=== PATIENT | female | born 2000 | race Two or more races ===

== ENCOUNTER 2024-07-09 03:51 | Emergency (ER) | payer MEDICAID, SELFPAY ==
[2024-07-09 03:51] VITALS: BMI 35.9
[2024-07-09 03:59] VITALS: BP 131/91; PULSE 110; RESP 18; TEMP 36.8; O2SAT 99
--- NOTE | 2024-07-09 04:15 | XR_ITS ---
Examination: Complete OB ultrasound greater than 14 weeks Date and time of exam: July 09, 2024 0429 hours INDICATIONS: Pelvic cramping beginning today Findings: Viable intrauterine single fetus with single amniotic sac presentation cephalic spine posterior Cardiac motion 141 BPM Placenta fundal grade 0 Umbilical cord insertion seen Amniotic fluid index 11.1 cm Cervix 3.9 cm spine posterior Right ovary 3.7 cm arterial flow Left ovary 3.1 cm arterial flow. Composite estimated gestational age based on BPD, head circumference, abdominal circumference, femur length is 15 weeks 6 days Estimated weight 139 g. Survey of intracranial anatomy, spinal anatomy, abdominal anatomy, four-chamber heart performed with no abnormalities identified. Impression: Viable intrauterine gestation cephalic presentation.
--- NOTE | 2024-07-09 04:15 | PD.EDRME ---
Rapid Medical Screening Exam [facility] Arrival date/time: 07/09/24 03:51 23F at approximately 15 weeks and with no significant PMH presents to ED with 1 day of R pelvic pain/cramping. Patient denies vaginal bleeding and dysuria. Chief Complaint: Abdominal Pain Vital signs: Vital Signs Temperature 98.2 F 07/09/24 03:59 Pulse Rate 110 H 07/09/24 03:59 Respiratory Rate 18 07/09/24 03:59 Blood Pressure 131/91 H 07/09/24 03:59 Pulse Oximetry (%) 99 07/09/24 03:59 Oxygen Delivery Method Room Air 07/09/24 03:59
--- NOTE | 2024-07-09 05:27 | PRELIM_ITS ---
Obstetric ultrasound with Doppler and wave Doppler spectral analysis. July 09, 2024 at 0429 hours Clinical history: Pain/cramping, no bleeding; 15 weeks. Comparison: None. Findings: There is a gravid uterus with a live fetus in cephalic presentation of mean gestational age 15 weeks and 6 days (by biometry). cardiac activity is present at a heart rate of 141 beats per minute. The placenta is fundal in location, maturity grade 0. There is no evidence of placenta previa or retroplacental hemorrhage. Amniotic fluid is adequate (MOODY = 11.1 cm). Estimated weight is 139 grams+/- 21 grams. The right ovary measures 3.7 x 1.7 x 2.4 cm. The left ovary measures 3.1 x 1.6 x 2.4 cm. Normal blood flow in the bilateral ovaries with normal wave Doppler spectral analysis. Impression: Gravid uterus with a single live fetus in cephalic presentation of mean gestational age 15 weeks 6 days. No evidence of ovarian torsion. Report Electronically Signed By: Nicholas Alvarez 07/09/2024 5:26:04 AM [EST]
[2024-07-09 05:35] LABS: Basophils % (Auto) 1 % (0-2.5); Eosinophils # (Auto) 0.1 Thou/mm3 (0.0-0.5); Eosinophils % (Auto) 1 % (0-10); Hematocrit 39.6 % (36.0-46.0); Hemoglobin 13.6 g/dL (12.0-16.0); Immature Granulocytes % (Auto) 1 % (0-0); Immature Granulocytes Auto 0.04 Thou/mm3 (0.00-0.00); Lymphocytes # (Auto) 1.7 Thou/mm3 (1.0-4.8); Lymphocytes % (Auto) 19 % (10-50); Mean Corpuscular HGB Conc 34.3 g/dl (31.0-37.0); Mean Corpuscular Hemoglobin 28.5 pg (25.0-35.0); Mean Corpuscular Volume 83 fL (80-100); Monocytes # (Auto) 0.5 Thou/mm3 (0.0-0.8); Monocytes % (Auto) 6 % (0-12); Neutrophils # (Auto) 6.4 Thou/mm3 (1.8-7.7); Neutrophils % (Auto) 73 % (37-80); Nucleated Red Blood Cell % 0 /100 WBC (0); Platelet Count 316 Thou/mm3 (140-440); RDW Standard Deviation 39.2 fL (36.4-46.3); Red Blood Count 4.78 Miln/mm3 (4.00-5.20); White Blood Count 8.8 Thou/mm3 (3.6-11.0)
[2024-07-09 05:49] LABS: Collection Type, Urine Clean Catch; RBC,Urine 0 /hpf (0-3); WBC,Urine 0 /hpf (0-5)
[2024-07-09 06:16] LABS: Bacteria,Urine Rare; Bilirubin,Urine Negative (Negative); Blood,Urine Negative (Negative); Clarity,Urine Turbid (Clear/Hazy); Color,Urine Lt-Yellow (Lt Yel-Yel); Glucose, Urine Negative (Negative); Ketones,Urine Negative (Negative); Leukocyte Esterase,Urine Negative (Negative); Nitrite,Urine Negative (Negative); PH,Urine 6.5 (5.0-7.0); Protein,Urine Negative (Neg - Trace); Specific Gravity,Urine 1.016 (1.001-1.035); Squamous Epithelial Cell,Urine 7 /hpf (0-5); Urobilinogen,Urine Negative mg/dL (0.0-1.0)
[2024-07-09 06:43] LABS: Alanine Aminotransferase 81 U/L (10-49); Albumin, Serum 4.3 gm/dL (3.5-5.0); Albumin/Globulin Ratio 1.5 (1.2-2.2); Alkaline Phosphatase 90 U/L (46-116); Anion Gap 8 (7-16); Aspartate Amino Transferase 33 U/L (0-34); BUN/Creatinine Ratio 12 Ratio (12-20); Beta HCG,Quantitative 39932 mIU/mL (<5.0); Bilirubin,Total 0.4 mg/dL (0.3-1.2); Blood Urea Nitrogen 7 mg/dL (9-23); Calcium 9.6 mg/dL (8.3-10.6); Calcium (Corrected) 9.6 mg/dL (8.5-10.1); Carbon Dioxide 24.2 mMol/L (20.0-31.0); Chloride 109 mMol/L (98-107); Creatinine (Component) 0.6 mg/dL (0.6-1.3); Estimated Creatinine Clearance 139.7 mL/min (>60); Globulin 2.9 gm/dL (2.3-3.5); Glucose 99 mg/dL (74-106); Osmolality,Calculated 279 (275-295); Potassium 3.3 mMol/L (3.4-5.1); Sodium 141 mMol/L (136-145); Total Protein 7.2 gm/dL (5.7-8.2); eGFR > 60 See Note
--- NOTE | 2024-07-09 07:32 | EDNOTE_ITS ---
ED Abdominal Pain RME/HPI General Chief Complaint: Abdominal Pain Stated complaint: RLQ PAIN 15WKS PREG Time seen by provider: 07/09/24 07:03 Arrival date/time: 07/09/24 03:51 This is a 23-year-old female who presents to the emergency department with complaints of generalized abdominal pain and cramping. She reports being approximately 15 weeks . The pain has been intermittent for the past 3 days and is worsened by movement or stretching. She denies any vaginal bleeding, nausea, vomiting, fever, chills, or dysuria. She has not taken any medications for symptom relief. Her symptoms prompted today's ED visit for further evaluation. Limitations: no limitations RME / HPI RME / HPI narrative: 07/09/24 03:51 23F at approximately 15 weeks and with no significant PMH presents to ED with 1 day of R pelvic pain/cramping. Patient denies vaginal bleeding and dysuria. Related Data Allergies Allergy/AdvReac Type Severity Reaction Status Date / Time No Known Allergies Allergy Verified 07/09/24 03:53 Review of Systems Review of Systems Systems Reviewed: All systems reviewed, normal except as documented Narrative Review of Systems: Gen: No fever, no chills, no weight loss EYES: No discharge, no visual changes, no pain HEENT: No ear pain, no congestion, no sore throat PULM: No shortness of breath, no cough, no congestion CV: No chest pain, no dyspnea on exertion, no palpitations GI: No nausea, no vomiting, no diarrhea, +abd pain, no constipation : No frequency, no urgency,? no dysuria Musc/skel: No joint pain, no back pain Skin: No rash? ED Exam General Limitations: Present no limitations General appearance: Present alert and in no apparent distress Head Head exam: Present atraumatic Eye Eye exam: Present normal appearance, PERRL and EOMI ENT ENT exam: Present normal exam, normal oropharynx and mucous membranes moist Neck Neck exam: Present normal inspection, full ROM and trachea midline Chest Chest inspection: Present normal inspection and symmetric chest wall rise Respiratory Respiratory exam: Present normal lung sounds bilaterally Cardiovascular Cardiovascular exam: Present regular rate, normal rhythm and normal heart sounds Abdominal Exam Abdominal exam: Present soft and normal bowel sounds Extremities Exam Extremities exam: Present normal inspection and full ROM Back Exam Back exam: Present normal inspection and full ROM Neurological Exam Neurological exam: Present alert, oriented X3 and CN II-XII intact Psychiatric Psychiatric exam: Present normal affect and normal mood Skin Skin exam: Present warm, dry, intact and normal color Course Quality Measures none Orders Category Date Time Status US OB >= 14 weeks Fetus Stat Exams 07/09/24 04:15 Taken Beta HCG,Quantitative Stat Lab 07/09/24 05:06 Completed CBC Stat Lab 07/09/24 05:06 Completed CMP [Comprehensive Metabolic Panel] Stat Lab 07/09/24 05:06 Completed UA [Urinalysis] Stat Lab 07/09/24 05:25 Completed Urine Culture Stat Lab 07/09/24 05:25 Received Vital Signs Vital signs: Vital Signs Temperature 98.2 F 07/09/24 03:59 Pulse Rate 110 H 07/09/24 03:59 Respiratory Rate 18 07/09/24 03:59 Blood Pressure 131/91 H 07/09/24 03:59 Pulse Oximetry (%) 99 07/09/24 03:59 Oxygen Delivery Method Room Air 07/09/24 03:59 Abdominal Pain MDM MDM Narrative MDM Narrative:: The patient was awake, alert, and in no acute distress. Vital signs remained stable throughout her ED stay. General labs were obtained: CBC showed no leukocytosis or bandemia; urinalysis was negative. OB ultrasound revealed a gravid uterus with a single live intrauterine fetus measuring approximately 15 weeks and 6 days. No signs of acute renal failure were noted. At the time of discharge, the patient reported resolution of pain at rest, with mild discomfort only upon movement. She was advised that her symptoms are likely due to round ligament pain associated with . Assessment and Plan: 23-year-old female at approximately 15 weeks gestation presenting with intermittent generalized abdominal pain. * Stable vital signs, no systemic symptoms * Negative urinalysis, no signs of infection or acute pathology on labs * OB ultrasound reassuring with live intrauterine * Likely round ligament pain * Advised to take OTC Tylenol as needed for discomfort * Follow-up with OB provider * Strict return precautions: return to ED for worsening pain, vaginal bleeding, fever, or any concerning changes Patient data External records reviewed:: [facility] previous records Clinical information provided by:: patient Social determinants that could affect healthcare access:: none Patient has the following chronic illnesses:: no How is presenting disease/condition affected by chronic disease/condition?: no chronic disease Evaluation data The following diagnostics were reviewed and interpreted by me:: lab results and radiology exam(s) Lab and/or radiology exams considered but not ordered:: no Interpretation Summary: Ultrasound Doppler demonstrates gravid uterus with single live fetus 15 weeks 6 days no evidence of ovarian torsion. Medications / Prescriptions Medications or Prescriptions considered but not ordered:: No Medication administrations:: No Consultations Consultation(s) initiated? (list below): No Diagnosis Differential diagnosis abdominal pain: abdominal pain, calculus of kidney, constipation, gastroenteritis, pancreatitis and small bowel obstruction Most likely diagnosis given after review of the tests above:: Round ligament Admission Indicated Admission indicated?: not indicated Admission Request Was there a request for admission?: No Disposition Plan Disposition Plan: Discharge Discharge Attestation Discharge Attestation: The patient and all family members were given an opportunity to ask questions and understood the discharge instructions. Discharge instructions specifically effects, indications for sooner follow up or return to the emergency department, and the expected course of current diagnosis. Patient condition: Stable Discharge Plan Plan Patient Disposition: HOME (Self Care) Patient condition on transfer: Stable Prescriptions/Referrals Referrals: No Primary/Family,Physician [Primary Care Provider] - In 1 week Problem List Clinical Impression: Pain of round ligament during Patient/Caregiver Discharge Instructions Discharge Activity: activity as tolerated Education Materials: Round Ligament Pain Additional Instructions: This very important for you to make an appointment for follow-up with your BO[employer] SUPERVISOR or family doctor. Please return to the emergency department this any worsening symptoms change in condition. You can take [id number] Tylenol for pain. Print Language: Chilean Stand Alone Forms: [employer] Award Info., Work/School Release, Patient Portal Info Letter FAN/CHONG Supervising Physician JESSE Supervising Physician: dr Melton
[2024-07-09 08:51] VITALS: BP 122/78; PULSE 89; O2SAT 99
== END 2024-07-09 08:51 | disposition home or self-care (01) ==
PROVIDERS: Physician Assistant; Emergency Provider Family Medicine
DX: O26.892 Other specified pregnancy related conditions, second trimester (principal); R10.2 Pelvic and perineal pain; Z3A.15 15 weeks gestation of pregnancy
CPT/HCPCS: 36415; 76805; 80053; 81001; 84702; 85025; 87086; 99284

== ENCOUNTER 2025-01-10 23:33 | Emergency (ER) | payer MEDICAID, SELFPAY ==
[2025-01-10 23:34] VITALS: BMI 32.2
[2025-01-10 23:43] VITALS: BP 144/85; PULSE 73; RESP 16; TEMP 36.7; O2SAT 99
--- NOTE | 2025-01-10 23:44 | EDNOTE_ITS ---
ED Abdominal Pain RME/HPI General Chief Complaint: Abdominal Pain Stated complaint: EPIGASTRIC PAIN X 15MINS Time seen by provider: 01/10/25 23:39 Arrival date/time: 01/10/25 23:33 RME / HPI RME / HPI narrative: See [facility] for Dr. Allen's HPI documentation. Related Data Previous Rx's ?Medication ?Instructions ?Recorded famotidine 40 mg tablet 40 mg PO .bedtime #30 tabs 1 omeprazole 40 mg capsule,delayed 40 mg PO QDAY #30 cap s 01/11/25 release ondansetron 4 mg disintegrating 4 mg PO TID PRN nausea and 01/11/25 tablet vomiting 30 days #10 tabs Allergies Allergy/AdvReac Type Severity Reaction Status Date / Time No Known Allergies Allergy Verified 07/09/24 03:53 Review of Systems Review of Systems Systems Reviewed: All systems reviewed, normal except as documented Past Medical History Social History SMOKING STATUS: Never smoker ED Exam Narrative Physical exam: See [facility] for Dr. Allen's HPI documentation. Course Quality Measures none Orders Category Date Time Status Saline [Insert IV] NOW Care 01/10/25 23:48 Completed US gall bladder Stat Exams 01/11/25 00:15 Taken Amylase Stat Lab 01/10/25 23:56 Completed Bilirubin,Direct Stat Lab 01/10/25 23:56 Completed CBC Stat Lab 01/10/25 23:56 Completed CMP [Comprehensive Metabolic Panel] Stat Lab 01/10/25 23:56 Completed HCG,Qualitative Serum Stat Lab 01/10/25 23:56 Completed Lipase Stat Lab 01/10/25 23:56 Completed Magnesium Stat Lab 01/10/25 23:56 Completed UA, C/S IF [Urinalysis, C/S if Indicated] Stat Lab 01/11/25 00:40 Completed Famotidine Inj [Pepcid Inj] Med 01/11/25 00:11 Discontinued 20 mg IVP X1 ONE HYDROmorphone INJ [Dilaudid Inj] Med 01/10/25 23:48 Discontinued 1 mg IVP X1 ONE Ketorolac Inj [Toradol Inj] Med 01/10/25 23:48 Discontinued 30 mg IVP X1 ONE Morphine* Inj Med 01/10/25 23:51 Discontinued 4 mg IV X1 ONE Ondansetron Inj [Zofran Inj] Med 01/10/25 23:48 Discontinued 4 mg IVP X1 ONE Pantoprazole Inj [Protonix Inj] Med 01/11/25 00:11 Discontinued 40 mg IVP X1 ONE Sodium Chloride 0.9% 1000 ml [Ns] 1,000 ml Med 01/10/25 23:48 Discontinued IV 999 mls/hr Vital Signs Vital signs: Vital Signs Temperature 98.0 F 01/10/25 23:43 Pulse Rate 73 01/10/25 23:43 Respiratory Rate 16 01/10/25 23:43 Blood Pressure 144/85 H 01/10/25 23:43 Pulse Oximetry (%) 99 01/10/25 23:43 Oxygen Delivery Method Room Air 01/10/25 23:43 Abdominal Pain MDM MDM Narrative MDM Narrative:: This section includes all my notes and documentations, including HPI, PE, and ED course. Hardik Allen MD HPI: 24yo female here with epigastric pain and nausea for the last one hour. Radiates into chest. Patient gave one month ago. No other complaints reported. ROS: All negative except as documented in HPI. Physical Exam: General: Alert and oriented. Appears to be in pain. Eyes: Conjunctivae and lids clear. ENT: No nasal congestion. Neck: Supple. Heart: RRR. Lungs: No respiratory distress. Good air movement. No rhonchi, wheezing, rales. Abdomen: Soft and upper abdominal tenderness. Normal bowel sounds. No distension. No rebound or guarding. Back: No CVA tenderness. Skin: Warm and dry. Neuro: Alert and oriented X 3. I reviewed all diagnostic test results. My review of the gallbladder US report is cholelithiasis. Blood tests and urine tests are unremarkable. At this point, diagnoses include: GERD Cholelithiasis Treatment here included: Protonix Pepcid Zofran Morphine Toradol IV fluid Significant improvement noted. Recommended more outpatient workup. Based on my best medical judgment, made decision no further evaluation or treatment indicated at this time. Patient understands and agrees to the discharge instructions customized and printed, see below. Discharge instructions from Dr. Allen: ?After evaluation, your symptoms are due to GERD (see attached handout). ?To help healing, take Omeprazole 40 mg every morning and Famotidine 40 mg at bedtime for a week then as needed. ?Zofran for nausea/vomiting. Clear liquid diet for 24 hours. Then slowly advance diet as tolerated. ?Avoid food and beverages that can trigger and worsen ulcers. See attached handout. ?See a private doctor on 01/13/2025. To make sure there is no serious intra-abdominal condition, ask for help with more investigation not available here in the ER. Such as EGD or scoping the stomach, colonoscopy or scoping the colon, and referral to see web operations specialist. Ask to review all test results and official radiology reports, to make sure you receive all necessary follow-ups and monitoring. ?Seek immediate medical care with worsening or with any concerns. Hardik Allen MD Patient data External records reviewed:: [facility] previous records (Per chart review, patient has no relevant previous ED visits.) Clinical information provided by:: patient Social determinants that could affect healthcare access:: none Patient has the following chronic illnesses:: none How is presenting disease/condition affected by chronic disease/condition?: no chronic disease Evaluation data The following diagnostics were reviewed and interpreted by me:: lab results and radiology exam(s) Lab and/or radiology exams considered but not ordered:: none Interpretation Summary: I reviewed all diagnostic test results. My review of the gallbladder US report is cholelithiasis. Blood tests and urine tests are unremarkable. Medications / Prescriptions Medications or Prescriptions considered but not ordered:: none Medication administrations:: Medication Administration History Discontinued Medications Famotidine (Famotidine Inj 10 Mg/Ml Vial 2 Ml) 20 mg IVP X1 ONE Stop: 01/11/25 00:12 Last Admin: 01/11/25 00:29 Dose: 20 mg Documented By: FIDE Hydromorphone HCl (Hydromorphone Inj 2 Mg/Ml Vial) 1 mg IVP X1 ONE Stop: 01/10/25 23:49 Last Admin: 01/11/25 00:07 Dose: Not Given Documented By: FIDE Non-Admin Reason: Cancelled by Provider Sodium Chloride (Ns) 1,000 mls @ 999 mls/hr IV .Q1H1M ONE Stop: 01/11/25 00:48 Last Infusion: 01/11/25 01:20 Dose: Infused Documented By: [email or web address] Admin: 01/11/25 00:15 Dose: 999 mls/hr Documented By: FIDE Ketorolac Tromethamine (Ketorolac Inj 30 Mg/Ml Vial) 30 mg IVP X1 ONE Stop: 01/10/25 23:49 Last Admin: 01/11/25 00:29 Dose: 30 mg Documented By: EE Morphine Sulfate (Morphine Sulf Inj 4 Mg/Ml Vial) 4 mg IV X1 ONE Stop: 01/10/25 23:52 Last Admin: 01/11/25 00:16 Dose: Not Given Documented By: EE Non-Admin Reason: Patient Refused Ondansetron HCl (Ondansetron Inj 2 Mg/Ml Inj 2 Ml) 4 mg IVP X1 ONE; Protocol Stop: 01/10/25 23:49 Last Admin: 01/11/25 00:16 Dose: Not Given Documented By: EE Non-Admin Reason: Patient Refused Pantoprazole Sodium (Pantoprazole Inj 40 Mg Vial) 40 mg IVP X1 ONE Stop: 01/11/25 00:12 Last Admin: 01/11/25 00:29 Dose: 40 mg Documented By: EE Protonix Pepcid Zofran Morphine Toradol IV fluid Consultations Consultation(s) initiated? (list below): No Diagnosis Differential diagnosis abdominal pain: calculus of kidney, constipation, diverticulitis, gastroenteritis, pancreatitis, small bowel obstruction and other (Biliary colic, GERD, gastritis, PUD) Most likely diagnosis given after review of the tests above:: GERD Cholelithiasis Admission Indicated Admission indicated?: not indicated Explain why admission is indicated or not indicated:: With significant improvement and no condition needing emergent intervention, there was no indication for admission. Admission Request Was there a request for admission?: No Disposition Plan Disposition Plan: Discharge Discharge Attestation Discharge Attestation: The patient and all family members were given an opportunity to ask questions and understood the discharge instructions. Discharge instructions specifically effects, indications for sooner follow up or return to the emergency department, and the expected course of current diagnosis. Patient condition: Stable Discharge Plan Plan Patient Disposition: HOME (Self Care) Prescriptions/Referrals Prescriptions/Med Rec: New famotidine 40 mg tablet 40 mg PO .bedtime Qty: 30 0RF omeprazole 40 mg capsule,delayed release(DR/EC) 40 mg PO QDAY Qty: 30 0RF ondansetron 4 mg tablet,disintegrating 4 mg PO TID PRN (Reason: nausea and vomiting) 30 Days Qty: 10 0RF Referrals: Temporary Provider,ED [Physician, Emergency Medicine] - In 1 week Problem List Clinical Impression: GERD (gastroesophageal reflux disease) Patient/Caregiver Discharge Instructions Discharge Activity: activity as tolerated Education Materials: ED GERD (Adult) Additional Instructions: Discharge instructions from Dr. Allen: ?After evaluation, your symptoms are due to GERD (see attached handout).? ?To help healing, take Omeprazole 40 mg every morning and Famotidine 40 mg at bedtime for a week then as needed. ?Zofran for nausea/vomiting.? Clear liquid diet for 24 hours.? Then slowly advance diet as tolerated. ?Avoid food and beverages that can trigger and worsen ulcers.? See attached handout. ?See a private doctor on 01/13/2025. To make sure there is no serious intra-abdominal condition, ask for help with more investigation not available here in the ER.? Such as EGD or scoping the stomach, colonoscopy or scoping the colon, and referral to see gastroenter ologist. Ask to review all test results and official radiology reports, to make sure you receive all necessary follow-ups and monitoring. ?Seek immediate medical care with worsening or with any concerns. Print Language: Czech Stand Alone Forms: [employer] Award Info., Patient Portal Info Letter
[2025-01-11 00:05] LABS: Basophils # (Auto) 0.0 Thou/mm3 (0.0-0.2); Basophils % (Auto) 0 % (0-2.5); Eosinophils # (Auto) 0.2 Thou/mm3 (0.0-0.5); Eosinophils % (Auto) 3 % (0-10); Hematocrit 40.5 % (36.0-46.0); Hemoglobin 13.5 g/dL (12.0-16.0); Immature Granulocytes Auto 0.02 Thou/mm3 (0.00-0.00); Lymphocytes # (Auto) 3.3 Thou/mm3 (1.0-4.8); Lymphocytes % (Auto) 49 % (10-50); Mean Corpuscular HGB Conc 33.3 g/dl (31.0-37.0); Mean Corpuscular Hemoglobin 29.0 pg (25.0-35.0); Mean Corpuscular Volume 87 fL (80-100); Monocytes # (Auto) 0.4 Thou/mm3 (0.0-0.8); Monocytes % (Auto) 6 % (0-12); Neutrophils # (Auto) 2.9 Thou/mm3 (1.8-7.7); Neutrophils % (Auto) 43 % (37-80); Nucleated Red Blood Cell # 0.00 Thou/mm3 (0.00-0.00); Nucleated Red Blood Cell % 0 /100 WBC (0); Platelet Count 326 Thou/mm3 (140-440); RDW Standard Deviation 38.5 fL (36.4-46.3); Red Blood Count 4.66 Miln/mm3 (4.00-5.20); White Blood Count 6.8 Thou/mm3 (3.6-11.0)
[2025-01-11] MEDS: SODIUM CHLORIDE 0.9% 1000 ML 1,000 ML 999 ML IV (00:15)
--- NOTE | 2025-01-11 00:15 | XR_ITS ---
Examination: Abdomen sonogram, Limited Date and time of exam: January 11, 2025, 0033 hrs. Indications: Right upper abdominal pain today Technique: Real-time james scale transabdominal sonographic images of the upper abdomen obtained. Findings: Multiple gallstones Gallbladder wall 0.3 cm no edema Common bile duct 0.3 cm Pancreatic head 2.1 cm Liver 16.5 cm no liver lesions Normal hepatopedal portal venous flow Patent IVC Impression: Cholelithiasis, negative for cholecystitis
[2025-01-11 00:26] LABS: Alanine Aminotransferase 48 U/L (10-49); Albumin, Serum 4.7 gm/dL (3.5-5.0); Albumin/Globulin Ratio 1.6 (1.2-2.2); Alkaline Phosphatase 130 U/L (46-116); Amylase 91 U/L (30-118); Anion Gap 10 (7-16); Aspartate Amino Transferase 29 U/L (0-34); BUN/Creatinine Ratio 12 Ratio (12-20); Bilirubin,Direct < 0.1 mg/dL (0.0-0.3); Bilirubin,Total 0.2 mg/dL (0.3-1.2); Blood Urea Nitrogen 11 mg/dL (9-23); Calcium 9.9 mg/dL (8.3-10.6); Calcium (Corrected) 9.9 mg/dL (8.5-10.1); Carbon Dioxide 26.9 mMol/L (20.0-31.0); Chloride 105 mMol/L (98-107); Creatinine (Component) 0.9 mg/dL (0.6-1.3); Estimated Creatinine Clearance 87.1 mL/min (>60); Globulin 2.9 gm/dL (2.3-3.5); Glucose 103 mg/dL (74-106); Lipase 51 U/L (12-53); Magnesium 2.1 mg/dL (1.6-2.6); Osmolality,Calculated 282 (275-295); Potassium 3.4 mMol/L (3.4-5.1); Sodium 142 mMol/L (136-145); Total Protein 7.6 gm/dL (5.7-8.2); eGFR > 60 See Note
[2025-01-11] MEDS: FAMOTIDINE INJ 10 MG/ML VIAL 2 ML 20 MG IVP (00:29)
[2025-01-11] MEDS: KETOROLAC INJ 30 MG/ML VIAL IVP (00:29)
[2025-01-11 00:41] LABS: Collection Type, Urine Clean Catch
[2025-01-11 00:50] LABS: Bilirubin,Urine Negative (Negative); Blood,Urine Negative (Negative); Clarity,Urine Clear (Clear/Hazy); Color,Urine Colorless (Lt Yel-Yel); Culture Indicated,Urine Not Indicated; Glucose, Urine Negative (Negative); Ketones,Urine Negative (Negative); Leukocyte Esterase,Urine Negative (Negative); Nitrite,Urine Negative (Negative); PH,Urine 7.0 (5.0-7.0); Protein,Urine Negative (Neg - Trace); RBC,Urine 1 /hpf (0-3); Specific Gravity,Urine 1.004 (1.001-1.035); Squamous Epithelial Cell,Urine 3 /hpf (0-5); Urobilinogen,Urine Negative mg/dL (0.0-1.0); WBC,Urine < 1 /hpf (0-5)
[2025-01-11 00:57] LABS: HCG,Qualitative Serum Negative
[2025-01-11 01:20] VITALS: BP 115/72; PULSE 77; RESP 20; TEMP 36.6; O2SAT 100
--- NOTE | 2025-01-11 01:59 | PRELIM_ITS ---
Right upper quadrant abdominal ultrasound with Doppler and wave Doppler spectral analysis. January 11, 2025 0033 hours Clinical history: RUQ tenderness Technique: Grayscale and color flow images of the right upper quadrant are provided. Hepatic and portal veins were also imaged with color flow images. Comparison: None available at the time of this report. Findings: The liver is normal in echogenicity. Hepatomegaly. No intrahepatic biliary ductal dilatation. Gallstones. No gallbladder wall thickening or pericholecystic fluid is demonstrated. The common bile duct is normal in caliber at 3.1 mm. The pancreas is unremarkable to the extent visualized. The imaged portions of the right kidney are within normal limits. The portal vein is patent with hepatopetal flow and normal wave Doppler spectral analysis. The hepatic veins are patent with normal wave Doppler spectral analysis. The hepatic vein is patent with normal wave Doppler spectral analysis. Jeff sign is not available at the time of this report. Impression: Hepatomegaly. Gallstones without evidence of acute cholecystitis. Report Electronically Signed By: Nicholas Alvarez 01/11/2025 1:58:09 AM [EST]
== END 2025-01-11 01:21 | disposition home or self-care (01) ==
PROVIDERS: Emergency Provider Emergency Medicine
DX: K21.9 Gastro-esophageal reflux disease without esophagitis (principal)
CPT/HCPCS: 36415; 76705; 80053; 81001; 82150; 82248; 83690; 83735; 84703; 85025; 96361; 96374; 96375; 99284; J1885; J2470; J3490; J7030

== ENCOUNTER 2025-01-15 18:17 | Emergency (ER) | payer MEDICAID, SELFPAY ==
[2025-01-15 19:12] VITALS: BP 123/85; PULSE 79; RESP 18; TEMP 36.6; O2SAT 100; BMI 32.2
--- NOTE | 2025-01-15 19:24 | EDNOTE_ITS ---
ED Abdominal Pain RME/HPI General Chief Complaint: Abdominal Pain Stated complaint: SEVERE UPPER ABD PAIN Time seen by provider: 01/15/25 19:21 Arrival date/time: 01/15/25 18:17 24F with history of GERD (recent diagnosis and visit) presents to ED with burning epigastric pain that radiates to throat. Patient was discharged recently with some meds, but patient didn't take any because she thought she didn't need to. She ate some fast food and now has the same burning pain. Limitations: no limitations Related Data Previous Rx's ?Medication ?Instructions ?Recorded famotidine 40 mg tablet 40 mg PO .bedtime #30 tabs 1 omeprazole 40 mg capsule,delayed 40 mg PO QDAY #30 cap s 01/11/25 release ondansetron 4 mg disintegrating 4 mg PO TID PRN nausea and 01/11/25 tablet vomiting 30 days #10 tabs Allergies Allergy/AdvReac Type Severity Reaction Status Date / Time No Known Allergies Allergy Verified 01/15/25 18:19 Review of Systems Review of Systems Systems Reviewed: All systems reviewed, normal except as documented Gastrointestinal Gastrointestinal: Reports as per HPI and Reports abdominal pain Past Medical History Past Medical History CARDIAC: Negative Congestive Heart Failure RESPIRATORY: Negative Chronic Obstructive Pulmonary Disease (COPD) GENITOURINARY: Negative Renal Disease ENDOCRINE: Negative Diabetes Mellitus Type 1 or Diabetes Mellitus Type 2 Social History SMOKING STATUS: Never smoker ED Exam General Limitations: Present no limitations General appearance: Present alert and in no apparent distress Head Head exam: Present atraumatic Neck Neck exam: Present normal inspection, full ROM and trachea midline Chest Chest inspection: Present normal inspection and symmetric chest wall rise Neurological Exam Neurological exam: Present alert and oriented X3 Psychiatric Psychiatric exam: Present normal affect and normal mood Skin Skin exam: Present warm, dry, intact and normal color Course Quality Measures none Orders Category Date Time Status Famotidine [Pepcid] Med 01/15/25 19:21 Discontinued 40 mg PO X1 ONE Ondansetron Odt [Zofran Odt] Med 01/15/25 19:21 Discontinued 4 mg PO X1 ONE mg Hyd/Al Hyd/Shakeel Susp [Maalox Susp] Med 01/15/25 19:21 Discontinued 30 ml PO X1 ONE Vital Signs Vital signs: Vital Signs Temperature 97.8 F 01/15/25 19:12 Pulse Rate 79 01/15/25 19:12 Respiratory Rate 18 01/15/25 19:12 Blood Pressure 123/85 H 01/15/25 19:12 Pulse Oximetry (%) 100 01/15/25 19:12 Oxygen Delivery Method Room Air 01/15/25 19:12 O2 at 100% on RA and WNLs Abdominal Pain MDM MDM Narrative MDM Narrative:: 24F with history of GERD (recent diagnosis and visit) presents to ED with burning epigastric pain that radiates to throat. Patient was discharged recently with some meds, but patient didn't take any because she thought she didn't need to. She ate some fast food and now has the same burning pain. Physical exam reveals uncomfortable female. Patient is afebrile and alert. Meds relieved symptoms. [employer] Professor given. Patient data External records reviewed:: [facility] previous records Clinical information provided by:: patient Social determinants that could affect healthcare access:: mental health (anxiety) Patient has the following chronic illnesses:: anxiety How is presenting disease/condition affected by chronic disease/condition?: exacerbated by Evaluation data The following diagnostics were reviewed and interpreted by me:: other (specify) (none) Lab and/or radiology exams considered but not ordered:: not ordered Interpretation Summary: n/a Medications / Prescriptions Medications or Prescriptions considered but not ordered:: ordered Medication administrations:: Medication Administration History Discontinued Medications Al Hydrox/Mg Hydrox/Simethicone (Mg Hyd/Al Hyd/Shakeel (Maalox Reg) Susp 30 Ml Udc) 30 ml PO X1 ONE Stop: 01/15/25 19:22 Last Admin: 01/15/25 19:35 Dose: 30 ml Documented By: ZACARIAS Famotidine (Famotidine 20 Mg Tablet) 40 mg PO X1 ONE Stop: 01/15/25 19:22 Last Admin: 01/15/25 19:35 Dose: 40 mg Documented By: ZACARIAS Ondansetron HCl (Ondansetron Odt 4 Mg Tabrap) 4 mg PO X1 ONE; Protocol Stop: 01/15/25 19:22 Last Admin: 01/15/25 19:35 Dose: 4 mg Documented By: ZACARIAS above Consultations Consultation(s) initiated? (list below): No Diagnosis Differential diagnosis abdominal pain: abdominal pain, acute appendicitis, calculus of kidney, constipation, diverticulitis, endometriosis, gastroenteritis, pancreatitis, small bowel obstruction and other (GERD) Most likely diagnosis given after review of the tests above:: GERD Admission Indicated Admission indicated?: not indicated Admission Request Was there a request for admission?: No Disposition Plan Disposition Plan: Discharge Discharge Attestation Discharge Attestation: The patient and all family members were given an opportunity to ask questions and understood the discharge instructions. Discharge instructions specifically effects, indications for sooner follow up or return to the emergency department, and the expected course of current diagnosis. Patient condition: Stable Discharge Plan Plan Patient Disposition: HOME (Self Care) Discharge Disposition comment: Stable Prescriptions/Referrals Prescriptions/Med Rec: No Action famotidine 40 mg tablet 40 mg PO .bedtime Qty: 30 0RF omeprazole 40 mg capsule,delayed release(DR/EC) 40 mg PO QDAY Qty: 30 0RF ondansetron 4 mg tablet,disintegrating 4 mg PO TID PRN (Reason: nausea and vomiting) 30 Days Qty: 10 0RF Problem List Clinical Impression: GERD (gastroesophageal reflux disease) Patient/Caregiver Discharge Instructions Education Materials: ED GERD (Adult) Additional Instructions: Please follow-up with PCP within 24-48 hours and return immediately if symptoms worsen. Take prescribed meds. Print Language: [place] Stand Alone Forms: Patient Portal Info Letter FAN/BARRATTE OPERATOR Supervising Physician FAN/CHONG Supervising Physician: Dr. Gonzales
[2025-01-15] MEDS: ONDANSETRON ODT 4 MG TABRAP PO (19:35)
[2025-01-15] MEDS: FAMOTIDINE 20 MG TABLET 40 MG PO (19:35)
[2025-01-15] MEDS: MG HYD/AL HYD/SIME (Maalox Reg) SUSP 30 ML UDC PO (19:35)
== END 2025-01-15 20:41 | disposition home or self-care (01) ==
LOC: SERX 20:34
PROVIDERS: Emergency Provider Emergency Medicine
DX: K21.9 Gastro-esophageal reflux disease without esophagitis (principal)
CPT/HCPCS: 99283; Q0162; A9270